=== PATIENT | male | born 1965 ===

== ENCOUNTER 2025-06-13 13:34 | Outpatient (AMB) | payer MEDICAID, SELFPAY ==
--- OUTSIDE RECORDS SUMMARY | 2025-06-13 14:12 | XMS_ITS | Data Portability ---
Author Organization [facility], , [facility] Address [address] [place] [address] Care Team Providers Care Chief Drafter Name Role Phone MUSTAPHA EDUARDO OTHER MARVIN APPIAH Primary Care Provider [phone] Assessment Encounter Date Assessment Date Assessment LastModified by Organization Details LastModified Time 11/07/2024 11/07/2024 cologuard 3 years 03/21 never smoker [email or web address] Not available 11/07/2024 16:07:51 05/10/2025 05/10/2025 cologuard 3 years 03/21 never smoker [email or web address] Not available 05/10/2025 11:00:59 Plan of Treatment Reminders Order Date Submit Date Provider Last Modified By Organization Details Last Modified Time Details Appointments Follow Up, 15 2024 08:30A M Marvin Appiah MD Not available Not available Not available Lab lipid panel, serum 2023 025 [facility], [address] [place], [address], 05/06/2025 11:33:44 Referral physical therapist referral - severe left posterior thigh pain, please eval / treat. Any [facility] PT location is Ok. 2024 025 [facility], [address] [place], [address], 03/11/2025 09:51:06 Procedures None recorded. Surgeries None recorded. Imaging CT, lumbar spine, w/o contrast - cant tolerate MRI 2024 025 [facility], [address] [place], [address], 05/22/2025 09:20:31 MRI, lumbar spine, w/o contrast - Left sciatica w weakness, numbness 2024 025 [email or web address] [facility], [address] [facility], [place], [address], 06/12/2025 10:56:49 XR, lumbar spine [email or web address] (Imaging), [address], [place], [address], 03/26/2025 11:07:59 Medication Orders gabapenti n 100 mg capsule 2024 025 [place] [address] ([address]), [address] [place], [place], [id number], 05/10/2025 11:00:16 prednison e 20 mg tablet 2024 025 [place] [address] ([facility] 827), [address] [place], [place], [id number], 03/26/2025 11:27:45 cyclobenz aprine 10 mg tablet 2024 025 [email or web address] 54 [facility], [address] [place] [address], [address], 05/10/2025 10:49:04 Patient TargetsNo targets recorded. Patient Instructions Encounter Date Encounter Id Patient Instructions Last Modified By Organization Details Last Modified Time 03/26/2025 [id number] sciatica: exercises [email or web address] Not available 03/26/2025 11:07:59 Reason for Referral Physical Therapist Referral for Thigh pain severe left posterior thigh pain, please eval / treat. Any [facility] PT location is Ok. Referring Physician: Pj Garcia, Family Medicine, Encounter Date: 03/10/2025 Results Created Date Observation Date Name Description Value Unit Range Abnormal Flag Note LastModifiedBy Organization Detail LastModifiedTime 05/03/20 25 05/03/2025 CBC WBC 6.47 K/ L 4.23-9 .07 Not Available [address], [address], 05/03/2025 10:52:07 05/03/20 25 05/03/2025 CBC RBC 4.48 M/ L 4.63-6 .08 low Not Available [address], [address], 05/03/2025 10:52:07 05/03/20 25 05/03/2025 CBC HGB 14.8 g/dL 13.7-1 7.5 Not Available [address], [address], 05/03/2025 10:52:07 05/03/20 25 05/03/2025 CBC HCT 43.5 % 40.1-5 1.0 Not Available [address], [address], 05/03/2025 10:52:07 05/03/20 25 05/03/2025 CBC MCV 97.1 fL 79.0-9 2.2 high Not Available [address], [address], 05/03/2025 10:52:07 05/03/20 25 05/03/2025 CBC MCH 33.0 pg 25.7-3 2.2 high Not Available [address], [address], 05/03/2025 10:52:07 05/03/20 25 05/03/2025 CBC MCHC 34.0 g/dL 32.3-3 6.5 Not Available [address], [address], 05/03/2025 10:52:07 05/03/20 25 05/03/2025 CBC plt 198 K/ L 163-33 7 Not Available [address], [address], 05/03/2025 10:52:07 05/03/20 25 05/03/2025 CBC MPV 9.3 fL 9.4-12 .4 low Not Available [address], [address], 05/03/2025 10:52:07 05/03/20 25 05/03/2025 CBC neut% 51.2 % 34.0-6 7.9 Not Available [address], [address], 05/03/2025 10:52:07 05/03/20 25 05/03/2025 CBC neut# 3.31 1.78-5 .38 Not Available [address], [address], 05/03/2025 10:52:07 05/03/20 25 05/03/2025 CBC lymph % 35.1 % 21.8-5 3.1 Not Available [address], [address], 05/03/2025 10:52:07 05/03/20 25 05/03/2025 CBC lymph # 2.27 K/ L 1.32-3 .57 Not Available [address], [address], 05/03/2025 10:52:07 05/03/20 25 05/03/2025 CBC mono% 9.3 % 5.3-12 .2 Not Available [address], [address], 05/03/2025 10:52:07 05/03/20 25 05/03/2025 CBC mono# 0.60 0.30-0 .82 Not Available [address], [address], 05/03/2025 10:52:07 05/03/20 25 05/03/2025 CBC eo% 3.2 % 0.8-7. 0 Not Available [address], [address], 05/03/2025 10:52:07 05/03/20 25 05/03/2025 CBC eo# 0.21 0.04-0 .54 Not Available [address], [address], 05/03/2025 10:52:07 05/03/20 25 05/03/2025 CBC baso% 0.6 % 0.2-1. 2 Not Available [address], [address], 05/03/2025 10:52:07 05/03/20 25 05/03/2025 CBC baso# 0.04 0.00-0 .08 Not Available [address], [address], 05/03/2025 10:52:07 05/03/20 25 05/03/2025 CBC RDW-CV 12.3 % 11.6-1 4.4 Not Available [address], [address], 05/03/2025 10:52:07 05/03/20 25 05/03/2025 CBC Ig% 0.600 % 0.000- 1.500 Ig % >0.5 Indic ates possi ble Left Shift Not Available [address], [address], 05/03/2025 10:52:07 05/03/20 25 05/03/2025 CBC Ig# 0.040 0.000- 0.093 Not Available [address], [address], 05/03/2025 10:52:07 05/03/20 25 05/03/2025 CBC NRBC% 0.0 % 0.0-0. 2 Not Available [address], [address], 05/03/2025 10:52:07 05/03/20 25 05/03/2025 CBC NRBC# 0.000 0.000- 0.012 Not Available [address], [address], 05/03/2025 10:52:07 05/03/20 25 05/06/2025 COMP. METAB OLIC PANEL glucose 95 mg/dL 70-100 Not Available [address], [address], 05/06/2025 11:33:43 05/03/20 25 05/06/2025 COMP. METAB OLIC PANEL BUN 18 mg/dL 7-18 Not Available [address], [address], 05/06/2025 11:33:43 05/03/20 25 05/06/2025 COMP. METAB OLIC PANEL creatinine 1.0 mg/dL 0.8-1. 3 Not Available [address], [address], 05/06/2025 11:33:43 05/03/20 25 05/06/2025 COMP. METAB OLIC PANEL B/C 18.0 ratio Not Available [address], [address], 05/06/2025 11:33:43 05/03/20 25 05/06/2025 COMP. METAB OLIC PANEL GFR >=60ML /MIN mL/mi n normal >=60m L/min - Barbara l or midly reduc ed <60mL /min- Decre ased kidne y funct ion <15mL /min - Kidne y failu re [facility] calcu lates estim ated Glome rular Filtr ation Rate (eGFR ) using the Chron ic Kidne y Disea se Epide miolo gy Colla borat ion (CKD- EPI) Equat ion (Ana r et. al 2020) as recom deja d by the Natio nal Kidne y Found ation . eGFR is based on age, serum creat inine , and sex. CKD-E PI does not calcu late eGFR by race, does not apply to child lukasz (age <18 years ), and shoul d not be used in pregn fanny. Not Available [address], [address], 05/06/2025 11:33:43 05/03/20 25 05/06/2025 COMP. METAB OLIC PANEL sodium 140 mmol/ L 136-14 5 Not Available [address], [address], 05/06/2025 11:33:43 05/03/20 25 05/06/2025 COMP. METAB OLIC PANEL potassium 4.4 mmol/ L 3.5-5. 1 Not Available [address], [address], 05/06/2025 11:33:43 05/03/20 25 05/06/2025 COMP. METAB OLIC PANEL chloride 104 mmol/ L 96-107 Not Available [address], [address], 05/06/2025 11:33:43 05/03/2005/06/2025 COMP. METAB OLIC PANEL anion gap 9.2 5.0-15 .0 Not Available [address], [address], 05/06/2025 11:33:43 05/03/20 25 05/06/2025 COMP. METAB OLIC PANEL CO2 27 mmol/ L 21-32 Not Available [address], [address], 05/06/2025 11:33:43 05/03/20 25 05/06/2025 COMP. METAB OLIC PANEL calcium 8.4 mg/dL 8.5-10 .3 low Not Available [address], [address], 05/06/2025 11:33:43 05/03/20 25 05/06/2025 COMP. METAB OLIC PANEL total protein 6.2 g/dL 6.4-8. 2 low Not Available [address], [address], 05/06/2025 11:33:43 05/03/20 25 05/06/2025 COMP. METAB OLIC PANEL albumin 3.7 g/dL 3.4-5. 0 Not Available [address], [address], 05/06/2025 11:33:43 05/03/20 25 05/06/2025 COMP. METAB OLIC PANEL globulin 2.5 g/dL Not Available [address], [address], 05/06/2025 11:33:43 05/03/20 25 05/06/2025 COMP. METAB OLIC PANEL A/G 1.5 ratio 0.8-2. 0 Not Available [address], [address], 05/06/2025 11:33:43 05/03/20 25 05/06/2025 COMP. METAB OLIC PANEL total bilirubin 0.80 mg/dL 0.00-1 .00 Not Available [address], [address], 05/06/2025 11:33:43 05/03/20 25 05/06/2025 COMP. METAB OLIC PANEL AST 20 U/L 0-37 Not Available [address], [address], 05/06/2025 11:33:43 05/03/20 25 05/06/2025 COMP. METAB OLIC PANEL ALT 44 U/L 6-63 Not Available [address], [address], 05/06/2025 11:33:43 05/03/20 25 05/06/2025 COMP. METAB OLIC PANEL alk. phos. 73 U/L 50-136 Not Available [address], [address], 05/06/2025 11:33:43 05/03/2005/06/2025 LIPID PANEL cholesterol 169 mg/dL <200 mg/dl Raisa able 200-2 39 mg/dl Borde rline High >240 mg/dl High Not Available [address], [address], 05/06/2025 11:33:44 05/03/2005/06/2025 LIPID PANEL triglyceride s 101 mg/dL <150 mg/dL Barbara l 150-1 99 mg/dL Borde rline High 200-4 99 mg/dL High >500 mg/dL Very High Not Available [address], [address], 05/06/2025 11:33:44 05/03/2005/06/2025 LIPID PANEL direct HDL 47 mg/dL <40 mg/dl - Major Risk for CHD >60 mg/dl - Negat karishma Risk for CHD Not Available [address], [address], 05/06/2025 11:33:44 05/03/2005/06/2025 LDL - CALCU LATED LDL - calculated 102 RISK CATEG ORY LDL GOAL _ CHD or CHD Risk Equiv alent s <100 mg/dl (10-y ear risk >20%) 2+ Risk Facto rs <130 mg/dl (10-y ear risk <= 20%) 0-1 Risk Facto r <160 mg/dl Almo st all peopl e with 0-1 risk facto r have a 10 year risk <10%, thus 10 year risk asses ment in peopl e with 0-1 risk facto r is not neces mikel. Not Available [address], [address], 05/06/2025 11:33:45 03/26/20 25 03/26/2025 XR, lumba r spine CLINIC AL HISTOR Y: Low back pain. TECHNI QUE: AP, Latera l and latera l spot views of the lumbar spine obtain ed. Bilate ral obliqu e views added. COMPAR VIJAY: None. FINDIN GS: Verteb ral body height and alignm ent are mainta ined.. There is endpla te spurri ng at all lumbar levels . The disc spaces are preser heather.. There is facet hypert rophic change most promin ent L4-5, L5-S1 bilate rally. There is no fractu re. The sacroi liac joints are unrema rkable . IMPRES BRADEN: 1. Mild degene rative disc and joint diseas e lumbar spine. 2. No acute bony abnorm ality. Kelsey gutiérrez Physic teresa: Philip Chatterjee [facility] (Imaging) [address], [place], [place], [address], 03/27/2025 06:46:54 05/22/20 25 05/19/2025 CT, lumba r spine , w/o contr ast CT LUMBAR SPINE WITHOU T CONTRA ST Referr ing clinic teresa's provid ed indica tion for this examin ation in Epic: Outsid e Radiol ogy Order TECHNI QUE: Multid etecto r-row CT of the lumbar spine was perfor med withou t intrav enous contra st using tailor ed dose modula tion techni ques. Images were recons tructe d in the axial, dunlap l, and sagitt al planes . COMPAR VIJAY: None FINDIN GS: LUMBAR SPINE: Alignm ent and Verteb cortez: Slight levocu rvatur e of the lumbar spine. Trace stepwi se retrol isthes is of T12 on L1-L2 on L3. Trace retrol isthes is is also seen at L5 on S1. Verteb ral bodies and social worker health services ior elemen ts are intact . Discs and Endpla baldo: Mild multil evel disc height loss. Small endpla te osteop hytes. Multil evel facet arthro aries. Small multil evel disc bulges with mild to modera te canal narrow ing at L2-3, L3-4, and L4-5 Multil evel forami nal narrow ing, most pronou nced and modera te at L3-4, L4-5, L5-S1. Soft Tissue : No prever tebral soft tissue thicke man. Other Findin gs: Hypoat tenuat ion of the imaged liver, likely hepati c steato sis. Mild arteri al athero sclero tic calcif icatio ns. Degene rative change s of the sacroi liac joints . IMPRES BRADEN: Degene rative change s of the lumbar spine with multil evel mild to modera te canal and forami nal narrow ing. Electr onical ly Signed by: Mustapha Abarca MD on 025 9:18 AM Interp reted by: Mustapha Abarca MD Signed by: Mustapha Abarca MD 5 Final result Per patien t, left sided sciati ca pain for a few months . He has had it in the past but not this bad he stated [place] [facility] [address] [place] [address], [address], 05/22/2025 12:13:53 05/22/2005/19/2025 CT, lumba r spine , w/o contr ast No observ ation record ed. [address], [address], 05/23/2025 12:24:56 05/22/2005/19/2025 CT, lumba r spine , w/o contr ast No observ ation record ed. [address], [address], 05/23/2025 12:24:57 06/12/2005/19/2025 CT, lumba r spine , w/o contr ast No observ ation record ed. [address], [address], 06/12/2025 17:17:42 Result Notes Documentation Provider Name and Address Organization Details Recorded Time Xr, Lumbar Spine : CLINICAL HISTORY: Low back pain. TECHNIQUE: AP, Lateral and lateral spot views of the lumbar spine obtained. Bilateral oblique views added. COMPARISON: None. FINDINGS: Vertebral body height and alignment are maintained.. There is endplate spurring at all lumbar levels. The disc spaces are preserved.. There is facet hypertrophic change most prominent L4-5, L5-S1 bilaterally. There is no fracture. The sacroiliac joints are unremarkable. IMPRESSION: 1. Mild degenerative disc and joint disease lumbar spine. 2. No acute bony abnormality. Reading Physician: Josie BURNETT, [facility], [address], [facility] 03/26/2025 13:17:26 Ct, Lumbar Spine, W/o Contrast : CT LUMBAR SPINE WITHOUT CONTRAST Referring clinician's provided indication for this examination in Epic: Outside Radiology Order TECHNIQUE: Multidetector-row CT of the lumbar spine was performed without intravenous contrast using tailored dose modulation techniques. Images were reconstructed in the axial, coronal, and sagittal planes. COMPARISON: None FINDINGS: LUMBAR SPINE: Alignment and Vertebrae: Slight levocurvature of the lumbar spine. Trace stepwise retrolisthesis of T12 on L1-L2 on L3. Trace retrolisthesis is also seen at L5 on S1. Vertebral bodies and posterior elements are intact. Discs and Endplates: Mild multilevel disc height loss. Small endplate osteophytes. Multilevel facet arthropathy. Small multilevel disc bulges with mild to moderate canal narrowing at L2-3, L3-4, and L4-5 Multilevel foraminal narrowing, most pronounced and moderate at L3-4, L4-5, L5-S1. Soft Tissue: No prevertebral soft tissue thickening. Other Findings: Hypoattenuation of the imaged liver, likely hepatic steatosis. Mild arterial atherosclerotic calcifications. Degenerative changes of the sacroiliac joints. IMPRESSION: Degenerative changes of the lumbar spine with multilevel mild to moderate canal and foraminal narrowing. Interpreted by: Mustapha Abarca MD Signed by: Mustapha Abarca MD 05/22/25 Final result Per patient, left sided sciatica pain for a few months. 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-[address], [address] , [facility] 5 05:23:00 Problem Notes None recorded. Medical Equipment None Reported. Allergies No known drug allergies Medications Name Sig Start Date Stop Date Status Note LastModified by Organization Details LastModified Time cyclobenz aprine 10 mg tablet Take one by mouth daily at bedtime as needed for muscle spasms 05/10 completed Not Available Not Available Not Available prednison e 20 mg tablet take 3 tabs a day for 4 days, 2 tabs a day for 3 days, 1 tab a day for 3 days, half a tab for 3 days 03/26 completed finsihed course 03/26/25 DS Not Available Not Available Not Available oxycodone -acetamin ophen 5 mg-325 mg tablet TAKE 1 TABLET EVERY 6 HOURS NEEDED FOR PAIN. 09/29 completed Not taking at this time 09/29/22 JF Not Available Not Available Not Available omeprazol e 20 mg capsule,d elayed release Take 1 capsule every day by oral route. 03/29 completed Not Available Not Available Not Available lisinopri l 5 mg tablet TAKE 1 TABLET BY MOUTH ONCE DAILY WITH 2.5MG TABLET 2024 active Not Available Not Available Not Avai lable gabapenti n 100 mg capsule TAKE 1 CAPSULE BY MOUTH THREE TIMES DAILY 05/10 completed Not Available Not Available Not Available ibuprofen 600 mg tablet TAKE 1 TABLET BY MOUTH FOUR TIMES DAILY WITH MEALS NEEDED 09/29 completed Not taking at this time 09/29/22 JF Not Available Not Available Not Available piroxicam 20 mg capsule Take 1 capsule twice a day by oral route. 03/29 completed Not Available Not Available Not Available lisinopri l 2.5 mg tablet TAKE 1 TABLET BY MOUTH ONCE DAILY WITH 5MG TABLET 2024 active Not Available Not Available Not Avai lable Ventolin HFA 90 mcg/actua tion aerosol inhaler INHALE 2 PUFFS BY MOUTH EVERY 4 HOURS 03/11 completed not taking 04/26/24 mk Not Available Not Available Not Available cyclobenz aprine 5 mg tablet 05/10 completed PRN Not Available Not Available Not Available chlorhexi dine gluconate 0.12 % mouthwash TAKE 15ML BY MOUTH, SWISH DIRECTED , AND SPIT TWICE DAILY AFTER BRUSHING TEETH SPIT - AFTER RINSING - DO NOT SWALLOW 09/29 completed Not taking at this time 09/29/22 JF Not Available Not Available Not Available Vitals Date Recorded Body height Body temperature Oxygen saturation Oxygen saturation in Arterial blood by Pulse oximetry Heart rate Provider Name and Address Organization Details Last Updated DateTime 5 172.72 cm 98.4 [degF] 99 % 99 % 64 /min Darby Bush [facility] 5 10:36:01 Date Recorded Body height Heart rate Oxygen saturation Oxygen saturation in Arterial blood by Pulse oximetry Body temperature Systolic And Diastolic Provider Name and Address Organization Details Last Updated DateTime 5 172.72 cm 78 /min 96 % 96 % 97.8 [degF] 134/90 mm[Hg] REGINALD Recio [facility] 5 16:10:27 Date Recorded Body height Heart rate Systolic And Diastolic Provider Name and Address Organization Details Last Updated DateTime 03/26/2025 172.72 cm 82 /min 124/70 mm[Hg] Lisa Rasheed [facility] 03/26/2025 09:35:42 Date Recorded Body height Body mass index (BMI) Body weight Heart rate Systolic And Diastolic Provider Name and Address Organization Details Last Updated DateTime 05/10/2025 172.72 cm 29.2 kg/m2 54539.44 g 68 /min 120/70 mm[Hg] Maria Del Carmennicolette Jimenez [facility] 05/10/2025 10:47:52 Date Recorded Body height Body mass index (BMI) Body weight Heart rate Systolic And Diastolic Provider Name and Address Organization Details Last Updated DateTime 11/07/2024 172.72 cm 29.5 kg/m2 53790.62 g 72 /min 110/60 mm[Hg] Maria Del Carmen [facility] 11/07/2024 15:58:09 Social History Question Answer Notes LastModified by Organizat ion Details LastModified Time Tobacco Smoking Status Never Smoker Not Available [facility] 10/14/2011 04:49:55 Do You Wear A Helmet When Biking? No Information not available 03/29/2022 What Is Your Level Of Caffeine Consumption? Moderate 2 Cups A Day Information not available 03/29/2022 What Type Of Diet Are You Following? REGULAR Information not available 03/29/2022 What Is The Highest Grade Or Level Of School You Have Completed Or The Highest Degree You Have Received? [id number] Information not available 03/29/2022 Have There Been Any Changes To Your Family Or Social Situation? No Information not available 03/29/2022 Are There Any Guns Present In Your Home? Yes Locked Information not available 03/29/2022 Do You Use Insect Repellent Routinely? Yes Information not available 03/29/2022 Have Your Ever Had Any Service? No Information not available 05/10/2025 What Was The Date Of Your Most Recent Tobacco Screening? 05/10/2025 [email or web address] Information not available 05/10/2025 How Many Children Do You Have? 0 Information not available 03/29/2022 What Is Your Relationship Status? Domestic Partner Engaged Information not available 03/29/2022 Do You Use Your Seat Belt Or Car Seat Routinely? Yes Information not available 03/29/2022 Are You Sexually Active? Yes [email or web address] Information not available 03/31/2023 Do You Have Smoke And Carbon Monoxide Detectors In Your Home? Yes Information not available 03/29/2022 Are You Passively Exposed To Smoke? No Information not available 03/29/2022 Do You Use Sunscreen Routinely? Yes Information not available 03/29/2022 Sex: Unknown Functional Status Question Answer Note LastModified by Organizat ion Details LastModified Time Do you use any illicit or recreational drugs? No Information not available 03/29/2022 Do you or have you ever used any other forms of tobacco or nicotine? Yes occ cigar [email or web address] Information not available 03/26/2025 What is your level of alcohol consumption? Moderate Information not available 03/29/2022 Are you currently employed? 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 Never used electronic cigarettes [email or web address] Information not available 03/26/2025 What is your exercise level? Occasional busy job Information not available 03/29/2022 Mental Status None recorded. Family History Relationship Description Onset Age of this Age Resolved Age Notes LastModified by Organization Details LastModified Time Father Accidental physical contact [email or web address] Not available 12/2021 15:19:55 Mother Acute myocardial infarction 72 [email or web address] Not available 15:20:10 Medical History Condition Response RHEUMATOLOGIC Hypertension Y Immunizations Vaccine Type Date Status Note Provider Nam e and Address Organization Details Recorded Time Td (adult), 2 Lf tetanus toxoid, preservative free, adsorbed 3 completed Marvin Appiah MD [address] [place] [address], [phone], [facility] 10/26/2023 09:50:37 COVID-19, mRNA, LNP-S, PF, 30 mcg/0.3 mL dose 1 completed Maria Del Carmen prado [facility] 04/02/2022 13:48:57 COVID-19, mRNA, LNP-S, PF, 30 mcg/0.3 mL dose 1 completed Maria Del Carmen prado [facility] 04/02/2022 13:49:07 Past Encounters Encounter ID Performer Location Encounter Start Date Encounter Closed Date Diagnosis/Indication Diagnosis SNOMED-CT Code Diagnosis ICD10 Code Diagnosis Note [id number] Jose Cruz Dumont MD [facility], [address] [address] 09/14/2005 15:48:28 09/15/2005 10:22:11 [id number] Jose Cruz Dumont MD Rheumat[facility] [address] [address] 10/05/2005 15:43:18 10/06/2005 15:49:51 [id number] Jose Cruz Dumont MD [facility], [address] [address] 01/22/2011 09:01:32 02/01/2011 10:21:11 [id number] Marvin Appiah MD , [facility], [address] [place] [address] 03/29/2022 14:40:38 03/29/2022 15:18:17 Essential hypertension 84309497 I10 well controlled on medpt states recent labscontin ue med, followup 6 months [id number] Francisco Fernandez MD , [facility], [address] [place] [address] 09/29/2022 08:31:19 09/29/2022 08:52:18 Essential hypertension 97339315 I10 well controlled on medcontinu e med, followup 6 monthslabs next visit [id number] Marvin Appiah MD , [facility], [address] [place] [address] 03/31/2023 07:45:55 03/31/2023 10:34:29 Adult health examination 176311385 Z00.00 still no records, pt will inquirelab s today Depression screening 171 744651 Z13.31 depression screening tool administer ed Screening for alcohol abuse 379911183 Z13.39 Alcohol use screening tool administer ed Screening for malignant neoplasm of prostate [id number] Z12.5 PSA testing for ages 55-69 risks and benefits discussed patient declines testing. Essential hypertension [id number] I10 well controlled on medcontinu e med, followup 6 months Screening for malignant neoplasm of colon [id number] Z12.11 due for cologard, order in pt agrees [id number] Marvin Appiah MD , [facility], [address] [place] [address] 10/26/2023 09:22:06 10/26/2023 17:06:40 Active or passive immunization [id number] Z23 Essential hypertension [id number] I10 well controlled on medcontinu e med, followup 6 months Muscle pain 31284798 M79 .10 OK for PRN flexeril, wont use oftenoffer ed lyme testing, declined, not sure useful at this timetrial alleve 2 BID for 2 weeks [id number] Marvin Appiah MD , [facility], [address] [place] [address] 01/13/2024 15:28:12 01/13/2024 16:04:15 Dyspnea [id number] R06.00 pt w/ dyspnea (difficult y exhaling while talking), dry spasmodic cough, fatigue, headache, maculopapu lar rash on back. lungs CTA b/l. vitals wnl. pt reports feeling 95% improved from tuesday but still with sx and traveling next week out of country.pl an to try albuterol and antihistam inept to f/u if no improvemen t/worsenin g sx Fatigue [id number] R53.83 Maculopapu lar eruption [id number] R21 Headache [id number] R51.9 [id number] Marvin Appiah MD , [facility], [address] [place] [address] 04/26/2024 08:21:32 04/26/2024 08:38:55 Essential hypertension 87357365 I10 well controlled on medcontinu e med, followup 6 months [id number] Marvin Appiah MD , [facility], [address] [place] [address] 11/07/2024 15:51:54 11/07/2024 16:06:49 Essential hypertension [id number] I10 well controlled on medcontinu e med, followup 6 monthslabs next visit Low back pain 062767425 M54.50 tylenol, advil, flexeril prncall if not improving [id number] Justin Ayala MD , [facility], [address] [place] [address] 03/10/2025 10:31:36 03/10/2025 11:07:42 Thigh pain [id number] M79.652 waxing and waning pain, currently severe, in posterior left thigh reaching to upper lateral calf. This suggests possible L5-S1 radiculopa thy, but this is less likely given lack of back pain, and also that pt has suffered from sciatic pain in the past and says this is different. ? piriformis syndrome / more downstream compressio n of sciatic nerve, vs muscle strains / spasms. I recommende d a new script of and trying higher dose of Flexeril, 10mg qhs. I also recommende d PT +/- sports med. He's willing to try PT, I asked rodbuster on checkout slip to see if they can find him an initial consult appt next week as he will be going on a cruise a week from today. Follow up if not improving. [id number] Richard Acevedo MD , [facility], [address] [place] [address] 03/11/2025 15:58:21 03/11/2025 16:30:41 Disorder of left sciatic nerve [id number] 57442 M54.32 Acute exacerbati on of sciatica with severe shooting, tingly, burning pain in the posterior left thigh extending to the upper lateral calf, accompanie d by numbness in the heel and pads of the foot. No back pain reported. Symptoms persistent since Tuesday. Differenti al includes lumbar stenosis or slipped disc. Prednisone discussed as a potent anti-infla mmatory to manage symptoms. Risks include effects on bone density, gastric health, blood sugar, blood pressure, skin, and eyes, primarily with long-term use. Short-term use (10-14 days) expected to provide relief within a day or two. Imaging considered if symptoms persist or worsen after treatment. Gabapentin considered for persistent pain if sciatica becomes more frequent. - Prescribe prednisone taper: 3 tabs daily for 4 days, 2 tabs daily for 3 days, 1 tab daily for 3 days, 0.5 tab daily for 3 days- Advise taking prednisone in the morning to minimize insomnia- Consider imaging if symptoms persist or worsen after treatment- Schedule follow-up appointmen t after returning from cruise- Discuss potential use of gabapentin if sciatica becomes more frequent- Follow up in 2 weeks [id number] Richard Acevedo MD , [facility], [address] [place] [address] 03/26/2025 09:19:35 03/27/2025 12:10:10 Disorder of left sciatic nerve [id number] 99808 M54.32 Chronic sciatica with persistent numbness in the heel and base of toes, weakness, and pain in the left leg, calf, and hip. Back pain started last October. Symptoms have improved slightly with prednisone but not resolved. Numbness and weakness affecting balance and gait. No muscle atrophy noted, but weakness is present on the left side. Difficulty working due to symptoms, impacting daily activities . Gabapentin is proposed for nerve pain management , with potential side effects including drowsiness and dizziness. MRI is necessary for further assessment , but insurance may require physical therapy and an x-ray first. Left leg slightly weaker than right (flexion at hip, dorsiflexi on of foot, extension at knee). Significan tly diminished sensation left sole/heel. - Order lumbar MRI to r/o structural lesion.- Prescribe gabapentin for nerve pain, starting with a low dose and titrating up as needed. Discuss potential side effects including drowsiness and dizziness, and advise against alcohol use.--- Encouraged to follow up on Portal if SEs or no improvemen t.- Expedite physical therapy appointmen t and place on cancellati on list for earlier availabili ty.- Provide exercises and stretching handout via patient portal.- Order x-ray to fulfill insurance requiremen ts for MRI approval.- Advise to remain active but avoid painful movements. - Follow up in April w PCP or sooner for any concerns. Essential hypertension [id number] I10 Well controlled . Continue lisinopril . [id number] Marvin Appiah MD , [facility], [address] [place] [address] 05/10/2025 10:42:02 05/13/2025 17:04:01 Essential hypertension 19953435 I10 well controlled on medcontinu e med, followup 6 months Disorder o f left sciatic nerve [id number] 21260 M54.32 cant tolerate MRIwill try CT scan Health Concerns Section Related Observation LastModified by Organization Detai ls LastModified Time None Recorded Concern Status LastModified by Organization Details LastModified Time None Recorded Advance Directives Directive None Recorded Payers Insurance Date Sequence Insurance Name Policy Number Policy [place] Covered Member ID [place]ano Member ID Guarantor Name 05/10/2025 1 [facility] - DOS ON OR AFTER 2023 - [facility] (MEDICAID REPLACEMENT - HMO) Mckinley Kathia [id number] Mckinley Kathia 03/30/2022 1 [facility] [employer] [facility] (HMO) [id number] Mckinley Kathia [id number] Mckinley Kathia 03/29/2023 1 [place] PRIOR TO 2023 - [facility] (MEDICAID) Mckinley Kathia [id number] Mckinley Kathia 08/05/2021 1 [facility] (HMO) [id number] Karla Kathia [id number] Mckinley Kathia 03/30/2022 1 [place] [id number] Noemi Bae [id number] Mckinley Kathia Notes Date Note Type Note Provider Name and Address Organization Details Recorded Time 4 text/html 11/07/24 for HTN followup. Taking meds as listed. No CP, SOB, HAthrew back out 2 days ago shoveling. Taking tylenol. Has flexeril at home from last rx Marvin Appiah MD [address] [place] [address], [phone], [facility] 11/07/2024 16:09:02 5 text/html here due to a hamstring strain a week ago. he's been icing it and taking OTC pain meds. Yesterday he was sitting still in a different chair and it started hurting again, severe pain kept him up all night. Pt thinks it's an old injury from a year or so ago that keeps flaring up slightly. However, a week ago he was running the clutch in his tractor all AM. It started to bother him, then by evening, it hurt a lot and kept him up all night. This gradually improved, but yesterday he was sitting on a bar stool-type chair and aching started again, but then got worse, like a toothache. Icing, elevation done at home, then worse anyway with no sleep and Crazy pain all night long. Pj Garcia PA-C [address] [place] [address], [phone], [facility] 03/10/2025 11:02:05 text/html Left Leg pain started a couple of weeks ago. No known injury. The patient presents with severe left posterior thigh and calf pain. He has severe pain in the left posterior thigh extending to the upper lateral calf, which began on Tuesday and has been constant since then. The pain is described as 'tingly, burning, shooting' and 'on fire,' and it becomes more like a 'toothache' when trying to rest. The pain is severe enough to impact his ability to walk, and he experiences numbness in the heel and pads of his feet. The pain worsens with walking and is somewhat relieved by pulling his leg up to his chest. He has been taking pain medication, including Flexeril, but it has not been effective. He reports weakness in the leg, stating it feels like he cannot walk on it, and describes a sensation of numbness over the posterior heel and sole. No back pain is reported. He has not had any recent imaging studies like X-rays or MRIs, although he mentions having had them in the past at [facility]. 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 He is currently on blood pressure medication and has not been on prednisone or gabapentin before. He needs sleep, as he has been unable to rest due to the pain. ==03/10/25==waxing and waning pain, currently severe, in posterior left thigh reaching to upper lateral calf. This suggests possible L5-S1 radiculopathy, but this is less likely given lack of back pain, and also that pt has suffered from sciatic pain in the past and says this is different. ? piriformis syndrome / more downstream compression of sciatic nerve, vs muscle strains / spasms. I recommended a new script of and trying higher dose of Flexeril, 10mg qhs. I also recommended PT +/- sports med. He's willing to try PT, I asked rodbuster on checkout slip to see if they can find him an initial consult appt next week as he will be going on a cruise a week from today. Follow up if not improving.Start cyclobenzaprine 10 mg tablet Take one by mouth daily at bedtime as needed for muscle spasmsSent for physical therapist referral here due to a hamstring strain a week ago. he's been icing it and taking OTC pain meds. Yesterday he was sitting still in a different chair and it started hurting again, severe pain kept him up all night. Pt thinks it's an old injury from a year or so ago that keeps flaring up slightly. However, a week ago he was running the clutch in his tractor all AM. It started to bother him, then by evening, it hurt a lot and kept him up all night. This gradually improved, but yesterday he was sitting on a bar stool-type chair and aching started again, but then got worse, like a toothache. Icing, elevation done at home, then worse anyway with no sleep and Crazy pain all night long. NOEMI FLORIAN-JUSTUS TZ, [facility] [address] [place] [address], [phone], [facility] 03/11/2025 16:54:25 5 text/html Sciatica follow up. Feels a little better s/p prednisone taper but still having severe pain in posterior left thigh, calf. Prednisone made him feel grumpy. Has persistent numbness in left heel and sole. Walking is difficult because of this. Feels weak on the left side. Works for himself and is not able to work. Cannot bend over, pick things up. Walking painful. Previously referred to PT. Scheduling out to May. ==03/11/25==Sciatica of left sideAcute exacerbation of sciatica with severe shooting, tingly, burning pain in the posterior left thigh extending to the upper lateral calf, accompanied by numbness in the heel and pads of the foot.No back pain reported. Symptoms persistent since Tuesday. Differential includes lumbar stenosis or slipped disc. Prednisone discussed as a potent anti-inflammatory to manage symptoms. Risks include effects on bone density, gastric health, blood sugar, blood pressure, skin, and eyes, primarily with long-term use. Short-term use (10-14 days) expected to provide relief within a day or two. Imaging considered if symptoms persist or worsen after treatment. Gabapentin considered for persistent pain if sciatica becomes more frequent. - Prescribe prednisone taper: 3 tabs daily for 4 days, 2 tabs daily for 3 days, 1 tab daily for 3 days, 0.5 tab daily for 3 days- Advise taking prednisone in the morning to minimize insomnia- Consider imaging if symptoms persist or worsen after treatment- Schedule follow-up appointment after returning from cruise- Discuss potential use ofgabapentinif sciatica becomes more frequent- Follow up in 2 [id number] mg tablet take 3 tabs a day for 4 days, 2 tabs a day for 3 days, 1 tab a day for 3 days, half a tab for 3 days--------The patient presents with severe left posterior thigh and calf pain. He has severe pain in the left posterior thigh extending to the upper lateral calf, which began on Tuesday and has been constant since then. The pain is described as 'tingly, burning, shooting' and 'on fire,' and it becomes more like a 'toothache' when trying to rest. The pain is severe enough to impact his ability to walk, and he experiences numbness in the heel and pads of his feet. The pain worsens with walking and is somewhat relieved by pulling his leg up to his chest. He has been taking pain medication, including Flexeril, but it has not been effective. Hereports weaknessin the leg, stating it feels like he cannot walk on it, and describes a sensation of numbness over the posterior heel and sole. No back pain is reported. He has not had any recent imaging studies like X-rays or MRIs, although he mentions having had them in the past at [facility]. 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 He is currently on blood pressure medication and has not been on prednisone or gabapentin before. He needs sleep, as he has been unable to rest due to the pain. ==03/10/25==waxing and waning pain, currently severe, in posterior left thigh reaching to upper lateral calf. This suggests possible L5-S1 radiculopathy, but this is less likely given lack of back pain, and also that pt has suffered from sciatic pain in the past and says this is different. ? piriformis syndrome / more downstream compression of sciatic nerve, vs muscle strains / spasms. I recommended a new script of and trying higher dose of Flexeril, 10mg qhs. I also recommended PT +/- sports med. He's willing to try PT, I asked rodbuster on checkout slip to see if they can find him an initial consult appt next week as he will be going on a cruise a week from today. Follow up if not improving.Start cyclobenzaprine 10 mg tablet Take one by mouth daily at bedtime as needed for muscle spasmsSent for physical therapist referral here due to a hamstring strain a week ago. he's been icing it and taking OTC pain meds. Yesterday he was sitting still in a different chair and it started hurting again, severe pain kept him up all night. Pt thinks it's an old injury from a year or so ago that keeps flaring up slightly. However, a week ago he was running the clutch in his tractor all AM. It started to bother him, then by evening, it hurt a lot and kept him up all night. This gradually improved, but yesterday he was sitting on a bar stool-type chair and aching started again, but then got worse, like a toothache. Icing, elevation done at home, then worse anyway with no sleep and Crazy pain all night long. NOEMI FLORIAN-JUSTUS GRIGGS, [facility] [address] [place], [phone], [facility] 03/26/2025 11:28:33 text/html 05/10/25 for followup HTN. Taking med as listed. no CP, SOB. HASeen several times for left sciatica. Better than it was, but still pain, Bottom of left foot numb. Cramping left calf. Tried to do MRI, couldnt tolerate. Doesnt think ativan would help. Prednisone no help, didnt try gabapentin. Hasnt been to PT, they were scheduling in June. Marvin Appiah MD [address] [place] [address], [place], [phone], [facility] 05/10/2025 11:03:11
--- NOTE | 2025-06-13 14:19 | HO.SPINEOV ---
Vital Signs 06/13/25 14:20 Height 5 ft 8 in Weight 185 lb BMI 28.1 Intake Visit Reasons: low back pain Intake Note: Mr. Bae is here today c/c Low back pain. Summer Child Caregiver Required: No Physical Exam Vital Signs: BMI result Body Mass Index 28.1 Assessment & Plan Assessment & Plan (1) Lumbar radiculopathy: Code(s): M54.16 - Radiculopathy, lumbar region Category: Medical Plan Dear Dr Appiah, Thank you for referring Mr Bae to our office today. 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 He occasionally will get flare-ups and he manages these with rest and tincture of time but in February this year something different happened where he noticed a severe pain shooting down the back of his leg into his hamstring and calf with numbness on the bottom of his foot. The pain has been at times incapacitating. He was trialed on steroid medication without much relief. Since then he has been taking a leave and icing it as well as doing some stretching. The pain is manageable at times and at other times again very painful. He underwent a CT scan showing some disc degeneration at L4-5 and L5-S1 was referred to see us. He has not done any physical therapy yet. No cortisone injections etc.. No cauda equina symptoms. PMH: He has some low-grade hypertension but other than that no significant medical issues. Never had surgery. Social hx: Does not smoke, drink use any recreational drugs Medications: Lisinopril Allergies: No known drug allergies Physical exam: Awake alert oriented no acute distress, he prefers standing because sitting is too painful, able to go up on the examining table on his own independently, strength and reflexes are normal. Imaging review: There is a lumbar CT done at [facility] showing some modest disc degeneration at L4-5 and L5-S1 but I am unable to assess neural structures or disc herniations based on the limitations of the CT. Impression: 60-year-old male with on and off back issues for 20 years, who developed a severe left lower extremity radiculopathy down his left leg about 3 or 4 months ago that has been persistently bothering him giving him numbness on the bottom of his foot as well. I suspect these herniated the disc but I have no way to prove it at this point only based on his clinical presentation. I am going to send him for an MRI. He tried to do 1 before but was very nervous and claustrophobic. I gave him a prescription for Valium and I will order the MRI down at the open MRI at [facility] in [place]. Once that is done he will contact my office and we will see him again in follow-up. Thank you for allowing us to care for your patient. The total time spent with this visit with this patient was 45 minutes reviewing history, physical exam, lumbar CT imaging review, and implementation of treatment plan or further diagnostic testing Eilas To MD,PhD [facility] Orders: Orders MR lumbar spine wo con Today M54.16 - Radiculopathy, lumbar region Coding Level of Care Code New Pt Level 4 (77792) Diagnoses Lumbar radiculopathy M54.16
[2025-06-13 14:20] VITALS: BMI 28.1
== END 2025-06-13 15:11 | disposition home or self-care (01) ==
LOC: HO.HNS 13:35
PROVIDERS: PCP Family Medicine; Referring Provider Family Medicine; Visit Provider Physician Assistant
DX: M54.16 Radiculopathy, lumbar region (principal)
CPT/HCPCS: 99204

== ENCOUNTER → 2025-06-13 13:34 | Outpatient (BNVA) | payer MEDICAID, SELFPAY | PROVIDERS: PCP Family Medicine; Referring Provider Family Medicine; Visit Provider Physician Assistant | DX: M54.16 Radiculopathy, lumbar region (principal) | CPT/HCPCS: 99202 ==